=== PATIENT | female | born 1965 | race Hispanic/Latino ===

== ENCOUNTER 2017-07-02 13:19 | Emergency (ER) | payer OTHER ==
[~2017-07-02 13:19] MED LIST: DULO20 PO; FLUO40CA7 PO; IBUP-2353 PO; LISI10TA7 PO
== END 2017-07-02 14:38 | disposition home or self-care (01) ==
LOC: EDH 13:19
DX: S90.31XA Contusion of right foot, initial encounter (principal); W22.8XXA Striking against or struck by other objects, initial encounter; Y93.89 Activity, other specified; Y92.098 Other place in other non-institutional residence as the place of occurrence of the external cause; Y99.8 Other external cause status
CPT/HCPCS: 73630

== ENCOUNTER 2017-07-26 09:40 | Emergency (ER) | payer OTHER | END 2017-07-26 10:52 | disposition home or self-care (01) | LOC: EDH 09:40 | DX: S99.821A Other specified injuries of right foot, initial encounter (principal); L08.9 Local infection of the skin and subcutaneous tissue, unspecified; I10 Essential (primary) hypertension; F32.9 Major depressive disorder, single episode, unspecified; Z72.0 Tobacco use; W22.8XXA Striking against or struck by other objects, initial encounter; Y93.89 Activity, other specified; Y92.69 Other specified industrial and construction area as the place of occurrence of the external cause; Y99.8 Other external cause status | CPT/HCPCS: 73630 ==